=== PATIENT | male | born 1955 | race Caucasian/White ===

== ENCOUNTER → 2020-08-23 | Outpatient (CLI) | payer OTHER ==
--- NOTE | 2020-08-23 11:47 | NUR ---
SPEECH PATHOLOGY Pt seen this date for MBS to assess swallow function d/t pt complaint of globus sensation x6 months. Pt reports difficulty with solids and pills. This EVIDENCE SPECIALIST administered thin liquids per cup, turkey sandwich, and hard cookie. Pt presented with trace aspiration of thin liquids and delayed cough as well as moderate amount of residual bolus in valleculae which did not clear with additional swallows, liquid wash somewhat effective in clearing vallecular residual, chin tuck and effortful swallow were also ineffective in clearing residual. Given pt's mobility, ability to self-feed, and ability to participate in oral care, trace aspiration of thin liquids unlikely to result in aspiration PNA. As such, this EVIDENCE SPECIALIST recommends pt continue on regular diet and thin liquids with dysphagia tx to focus on pharyngeal strengthening exercises and compensatory swallow strategies to reduce pharyngeal residue. RECOMMENDATIONS: REGULAR DIET WITH THIN LIQUIDS -LIQUID WASH -ALTERNATION OF LIQUIDS/SOLIDS -SMALL BITES/SIPS -REMAIN SEATED UPRIGHT FOR 30 MINUTES AFTER MEALS -CONTINUE WITH ORAL CARE AT 2-3X DAILY Full report to follow. Thank you for this referral! -NATALYA SCHREIBER M.A. [facility]-EVIDENCE SPECIALIST
== END | disposition home or self-care (01) ==
LOC: RAD/SH 09:59
PROVIDERS: ATTEND Nurse Practitioner Family
DX: R13.12 Dysphagia, oropharyngeal phase (principal)

== ENCOUNTER → 2020-09-14 | Outpatient (CLI) | payer OTHER | END | disposition home or self-care (01) | LOC: MRI 09-12 11:00 | PROVIDERS: ATTEND Nurse Practitioner Family | DX: G93.89 Other specified disorders of brain (principal); R41.82 Altered mental status, unspecified; R41.3 Other amnesia ==